=== PATIENT | male | born 1960 | race Caucasian/White ===

== ENCOUNTER 2018-05-16 13:18 | Outpatient (CLI) | payer MEDICARE | END 2018-05-16 13:19 | disposition home or self-care (01) | LOC: BICCT 13:18 | PROVIDERS: ATTEND Internal Medicine Cardiovascular Disease | DX: I65.23 Occlusion and stenosis of bilateral carotid arteries (principal) | CPT/HCPCS: 82565 ==

== ENCOUNTER 2018-07-11 17:20 | Outpatient (CLI) | payer SELFPAY ==
--- NOTE | 2018-07-11 20:46 | ULT ---
RIGHT LOWER EXTREMITY VENOUS DOPPLER ULTRASOUND: 07/11/2018 HISTORY: Pain, swelling, and edema. Assess for DVT. COMPARISON: None. TECHNIQUE: Multiplanar galvan-scale sonographic imaging of the venous structures of the right lower extremity obta ined with color-flow and spectral analysis. FINDINGS: Right common femoral vein, greater saphenous vein, profunda femoral vein femoral vein, popliteal vein , and posterior tibial vein are patent. Normal blood flow, augmentation, and compression within the deep venous system on the right. No evidence for DVT. IMPRESSION: No evidence for deep venous thrombosis of the right lower extremity. POS: [facility]
== END 2018-07-11 17:21 | disposition home or self-care (01) ==
LOC: ULT 17:20
PROVIDERS: ATTEND Family Medicine
DX: M79.604 Pain in right leg (principal)

== ENCOUNTER 2021-09-16 02:06 | Inpatient (IN) | payer MEDICARE ==
[2021-09-16 03:01] LABS: #Eosinphils 0.2 thou/uL (0.0-0.7); #Lymphocytes 0.5 thou/uL (1.20-3.40); #Monocytes 0.7 thou/uL (0.11-0.59); #Neutrophils 7.3 thou/uL (1.40-6.50); %Basophils 0.1 % (0.0-1.0); %Eosinophils 2.2 % (0.0-10.0); %Lymphocytes 5.3 % (21.0-51.0); %Neutrophils 84.3 % (42.0-75.0); Hemoglobin 9.3 g/dL (14.0-18.0); Mean Corpuscular HGB CONC 31.9 g/dL (32.0-36.0); Mean Corpuscular Hemoglobin 27.4 pg (27.0-31.0); Mean Corpuscular Volume 85.7 fL (78.0-98.0); Mean Platelet Volume 7.3 fL (7.4-10.4); Platelet Count 84 thou/uL (130-400); RBC Distribution Width 14.3 % (11.5-14.5); Red Blood Cell (RBC) Count 3.38 mill/uL (4.70-6.10); White Blood Cell (WBC) Count 8.7 thou/uL (4.8-10.8)
[2021-09-16 03:18] LABS: ALT (SGPT) 50 U/L (8-55); AST (SGOT) 37 U/L (5-34); Albumin 3.9 g/dL (3.4-4.8); Alkaline Phosphatase 165 U/L (40-110); Anion Gap 16 mmol/L (10-20); BUN (Urea Nitrogen) 71 mg/dL (8.4-25.7); Bilirubin, Total 0.6 mg/dL (0.2-1.2); Calc. Creatinine Clearance 0 mL/min (70-130); Calcium 8.9 mg/dL (7.8-10.44); Carbon Dioxide 20 mmol/L (23-31); Chloride 104 mmol/L (98-107); Globulin 3.7 g/dL (2.4-3.5); Glucose 157 mg/dL (80-115); Potassium 4.4 mmol/L (3.5-5.1); Protein, Total 7.6 g/dL (5.8-8.1); Sodium 136 mmol/L (136-145)
[2021-09-16] MEDS ORDERED: Fentanyl 100 MCG/2 ML VIAL ONE (03:53)
[2021-09-16] MEDS ORDERED: Dextrose 50% Abboject 50 ML SYRINGE SLOW IVP PRN (04:49)
[2021-09-16] MEDS ORDERED: Dextrose 5% in Water 1,000 ML IV PRN (04:49)
[2021-09-16] MEDS ORDERED: Ondansetron ODT 4 MG TAB PO PRN (04:49)
[2021-09-16] MEDS: traMADol HCl 50 MG TAB PO SCH ×3 (05:23→20:23)
[2021-09-16] MEDS: Acetaminophen 325 MG TAB PO SCH ×4 (05:23→23:27)
[2021-09-16 05:44] VITALS: BMI 28.1
[2021-09-16] MEDS: Ondansetron PF 4 MG/2 ML Vial IVP PRN ×2 (08:25→15:35)
[2021-09-16 09:17] LABS: Magnesium 2.2 mg/dL (1.6-2.6)
[2021-09-16] MEDS: pyridOXINE 50 MG (B6) TAB PO SCH ×2 (09:23→20:24)
[2021-09-16] MEDS: Carvedilol 6.25 MG TAB PO SCH ×2 (09:23→20:23)
[2021-09-16] MEDS: Famotidine 20 MG TAB PO SCH (09:23)
[2021-09-16] MEDS: Folic Acid 1 MG TAB PO SCH (09:23)
[2021-09-16] MEDS: Cyanocobalamin (Vitamin B-12) 1,000 MCG TAB PO SCH (09:23)
[2021-09-16] MEDS: hydrALAZINE 25 MG TAB PO SCH ×3 (09:24→20:23)
[2021-09-16] MEDS ORDERED: traMADol HCl 50 MG TAB PO PRN (10:42)
[2021-09-16] MEDS ORDERED: Morphine 4 MG/ML VIAL SLOW IVP SCH (15:15)
[2021-09-16] MEDS ORDERED: Promethazine HCl 25 MG/ML VIAL IM SCH (18:30)
[2021-09-16] MEDS: Gabapentin 300 MG CAP PO SCH (20:23)
[2021-09-16] MEDS: Atorvastatin Calcium 40 MG TAB PO SCH (20:23)
[2021-09-16] MEDS: cloNIDine 0.1 MG TAB PO SCH (20:23)
[2021-09-16] MEDS: Lantus 1000 UNITS/10 ML VIAL SC SCH (21:52)
[2021-09-17] MEDS: Acetaminophen 325 MG TAB PO SCH ×3 (05:31→17:41)
[2021-09-17 07:04] LABS: #Eosinphils 0.2 thou/uL (0.0-0.7); #Lymphocytes 0.4 thou/uL (1.20-3.40); #Monocytes 1.1 thou/uL (0.11-0.59); #Neutrophils 7.2 thou/uL (1.40-6.50); %Basophils 0.2 % (0.0-1.0); %Lymphocytes 4.7 % (21.0-51.0); %Monocytes 12.4 % (0.0-10.0); %Neutrophils 80.8 % (42.0-75.0); Hemoglobin 10.5 g/dL (14.0-18.0); Mean Corpuscular HGB CONC 31.4 g/dL (32.0-36.0); Mean Corpuscular Hemoglobin 27.3 pg (27.0-31.0); Mean Corpuscular Volume 87.1 fL (78.0-98.0); Mean Platelet Volume 7.8 fL (7.4-10.4); Platelet Count 112 thou/uL (130-400); RBC Distribution Width 14.8 % (11.5-14.5); Red Blood Cell (RBC) Count 3.83 mill/uL (4.70-6.10); White Blood Cell (WBC) Count 8.9 thou/uL (4.8-10.8)
[2021-09-17 07:22] LABS: Anion Gap 16 mmol/L (10-20); BUN (Urea Nitrogen) 64 mg/dL (8.4-25.7); Calc. Creatinine Clearance 24 mL/min (70-130); Calcium 9.4 mg/dL (7.8-10.44); Carbon Dioxide 20 mmol/L (23-31); Chloride 107 mmol/L (98-107); Glucose 127 mg/dL (80-115); Phosphorus 3.8 mg/dL (2.3-4.7); Potassium 4.4 mmol/L (3.5-5.1); Sodium 139 mmol/L (136-145)
[2021-09-17] MEDS: Cyanocobalamin (Vitamin B-12) 1,000 MCG TAB PO SCH (08:32)
[2021-09-17] MEDS: hydrALAZINE 25 MG TAB PO SCH ×3 (08:32→21:33)
[2021-09-17] MEDS: cloNIDine 0.1 MG TAB PO SCH ×3 (08:32→21:33)
[2021-09-17] MEDS: traMADol HCl 50 MG TAB PO SCH ×2 (08:32→21:32)
[2021-09-17] MEDS: pyridOXINE 50 MG (B6) TAB PO SCH ×2 (08:33→21:33)
[2021-09-17] MEDS: Famotidine 20 MG TAB PO SCH (08:33)
[2021-09-17] MEDS: Carvedilol 6.25 MG TAB PO SCH ×2 (08:33→21:33)
[2021-09-17] MEDS: Gabapentin 300 MG CAP PO SCH ×2 (08:33→21:33)
[2021-09-17] MEDS: Folic Acid 1 MG TAB PO SCH (08:33)
[2021-09-17] MEDS ORDERED: hydrALAZINE 20 MG/ML VIAL SLOW IVP PRN (09:07)
[2021-09-17] MEDS ORDERED: NIFEdipine XL 60 MG TAB PO SCH (10:30)
[2021-09-17] MEDS: Timolol 0.5% Ophth Soln 5 ml Bottle EA EYE SCH (14:10)
[2021-09-17] MEDS: HumaLOG 300 UNITS/3 ML VIAL SC PRN (17:42)
[2021-09-17] MEDS ORDERED: Enoxaparin Sodium 40 MG/0.4 ML SYRINGE SC SCH (21:00)
[2021-09-17] MEDS: Docusate 100 MG CAP PO SCH (21:32)
[2021-09-17] MEDS: Lantus 1000 UNITS/10 ML VIAL SC SCH (21:33)
[2021-09-17] MEDS: Atorvastatin Calcium 40 MG TAB PO SCH (21:33)
[2021-09-18] MEDS: Acetaminophen 325 MG TAB PO SCH ×4 (00:44→17:54)
[2021-09-18] MEDS: Acetaminophen/Codeine 30-300mg Tablet PO PRN (02:57)
[2021-09-18] MEDS: NIFEdipine XL 60 MG TAB PO SCH (08:37)
[2021-09-18] MEDS: Docusate 100 MG CAP PO SCH ×2 (08:38→20:49)
[2021-09-18] MEDS: Famotidine 20 MG TAB PO SCH (08:38)
[2021-09-18] MEDS: traMADol HCl 50 MG TAB PO SCH ×2 (08:38→20:51)
[2021-09-18] MEDS: Folic Acid 1 MG TAB PO SCH (08:38)
[2021-09-18] MEDS: Gabapentin 300 MG CAP PO SCH ×2 (08:39→20:50)
[2021-09-18] MEDS: pyridOXINE 50 MG (B6) TAB PO SCH ×2 (08:39→20:50)
[2021-09-18] MEDS: Carvedilol 6.25 MG TAB PO SCH ×2 (08:39→20:49)
[2021-09-18] MEDS: hydrALAZINE 25 MG TAB PO SCH ×3 (08:39→20:50)
[2021-09-18] MEDS: cloNIDine 0.1 MG TAB PO SCH ×3 (08:39→20:49)
[2021-09-18] MEDS: Cyanocobalamin (Vitamin B-12) 1,000 MCG TAB PO SCH (08:40)
[2021-09-18] MEDS: HumaLOG 300 UNITS/3 ML VIAL SC PRN ×2 (11:39→17:54)
[2021-09-18] MEDS: Atorvastatin Calcium 40 MG TAB PO SCH (20:48)
[2021-09-18] MEDS ORDERED: Enoxaparin Sodium 30 MG/0.3 ML SYRINGE SC SCH (21:00)
[2021-09-18] MEDS: Lantus 1000 UNITS/10 ML VIAL SC SCH (21:42)
[2021-09-19] MEDS: Acetaminophen 325 MG TAB PO SCH ×3 (00:17→11:35)
[2021-09-19] MEDS: Acetaminophen/Codeine 30-300mg Tablet PO PRN (03:11)
[2021-09-19] MEDS ORDERED: Polyethylene Glycol 3350 17 GM Packet PO SCH (09:00)
[2021-09-19] MEDS: Docusate 100 MG CAP PO SCH (09:23)
[2021-09-19] MEDS: NIFEdipine XL 60 MG TAB PO SCH (09:23)
[2021-09-19] MEDS: Gabapentin 300 MG CAP PO SCH (09:23)
[2021-09-19] MEDS: Folic Acid 1 MG TAB PO SCH (09:23)
[2021-09-19] MEDS: Famotidine 20 MG TAB PO SCH (09:23)
[2021-09-19] MEDS: Carvedilol 6.25 MG TAB PO SCH (09:23)
[2021-09-19] MEDS: pyridOXINE 50 MG (B6) TAB PO SCH (09:24)
[2021-09-19] MEDS: traMADol HCl 50 MG TAB PO SCH (09:24)
[2021-09-19] MEDS: Cyanocobalamin (Vitamin B-12) 1,000 MCG TAB PO SCH (09:24)
[2021-09-19] MEDS: hydrALAZINE 25 MG TAB PO SCH (09:24)
[2021-09-19] MEDS: cloNIDine 0.1 MG TAB PO SCH (09:24)
[2021-09-19] MEDS: Timolol 0.5% Ophth Soln 5 ml Bottle EA EYE SCH (11:35)
[2021-09-19] MEDS: HumaLOG 300 UNITS/3 ML VIAL SC PRN (11:56)
[2021-09-19 11:58] VITALS: BP 154/90; TEMP 98.1
== END 2021-09-19 14:00 | DRG 536 ==
LOC: ERS 02:06 → SURG A 03:00
PROVIDERS: ADMIT Specialist; ATTEND Surgery
DX: S72.001A Fracture of unspecified part of neck of right femur, initial encounter for closed fracture (principal); N18.4 Chronic kidney disease, stage 4 (severe); I12.0 Hypertensive chronic kidney disease with stage 5 chronic kidney disease or end stage renal disease; W05.0XXA Fall from non-moving wheelchair, initial encounter; E11.22 Type 2 diabetes mellitus with diabetic chronic kidney disease; D69.6 Thrombocytopenia, unspecified; Z99.3 Dependence on wheelchair; Z86.73 Personal history of transient ischemic attack (TIA), and cerebral infarction without residual deficits; Z87.11 Personal history of peptic ulcer disease; Z88.0 Allergy status to penicillin; Y92.009 Unspecified place in unspecified non-institutional (private) residence as the place of occurrence of the external cause
CPT/HCPCS: 36415; 36416; 71045; 80048; 80053; 83735; 84100; 85025; 93005; 94640; 96374; J1650; J1815; J2270; J2405; J2550; J3010; J7620

== ENCOUNTER 2022-02-08 15:21 | Emergency (ER) | payer MEDICARE, SELFPAY | END 2022-02-08 17:57 | LOC: ERS 15:21 | DX: R60.0 Localized edema (principal); F17.220 Nicotine dependence, chewing tobacco, uncomplicated; I10 Essential (primary) hypertension; Z86.73 Personal history of transient ischemic attack (TIA), and cerebral infarction without residual deficits; Z79.899 Other long term (current) drug therapy ==

== ENCOUNTER 2022-02-16 20:52 | Inpatient (IN) | payer MEDICARE, SELFPAY ==
[2022-02-16 21:35] LABS: Actual Bicarbonate (HCO3a) 18.8 mEq/L (22-28); Analyzer IN Cardio ER; Base Excess (BEa) -7.5 mEq/L (-2.0 to +3.0); CO2 Tension 42.5 mmHg (35.0-45.0); Carboxyhemoglobin (COHb) 1.5 gm% (0.0-3.0); O2 Tension (PaO2), arterial 70.5 mmHg (> 80.0); Potassium - ABG Lab 4.84 mmol/L (3.70-5.30); pH, Arterial 7.26 (7.35-7.45)
[2022-02-16 21:50] LABS: #Lymphocytes 0.4 thou/uL (1.20-3.40); #Monocytes 0.7 thou/uL (0.11-0.59); #Neutrophils 9.3 thou/uL (1.40-6.50); %Eosinophils 0.2 % (0.0-10.0); %Lymphocytes 3.7 % (21.0-51.0); %Monocytes 6.9 % (0.0-10.0); %Neutrophils 89.2 % (42.0-75.0); Mean Corpuscular HGB CONC 28.2 g/dL (32.0-36.0); Mean Corpuscular Hemoglobin 21.2 pg (27.0-31.0); Mean Corpuscular Volume 75.1 fL (78.0-98.0); Mean Platelet Volume 9.1 fL (7.4-10.4); Platelet Count 124 thou/uL (130-400); RBC Distribution Width 16.7 % (11.5-14.5); Red Blood Cell (RBC) Count 2.36 mill/uL (4.70-6.10); White Blood Cell (WBC) Count 10.4 thou/uL (4.8-10.8)
[2022-02-16 21:51] LABS: Hemoglobin (Hb) 5.3 g/dL (14.0-18.0)
[2022-02-16] MEDS ORDERED: Cefepime 2 GM VIAL ONE (21:51)
[2022-02-16 21:52] LABS: ALV-art Gradient 446.775 mmHg (0-20); Puncture Site LRA
[2022-02-16 22:03] LABS: Bacteria/HPF 2+ HPF (None Seen); Bilirubin Negative (Negative); Blood, Urine 1+ (Negative); Clarity Turbid (Clear); Glucose, Urine (Dipstick) Normal (Negative); Ketone, Urine Negative (Negative); Leukocyte 500 Leu/uL (Negative); Mucous/LPF Rare LPF (<2+); Nitrite Negative (Negative); Protein, Urine (Dipstick) 50 mg/dL (Neg-Trace); Renal Epithelial 0-3 HPF (None Seen); Specific Gravity, Urine 1.014 (1.002-1.036); Squamous Epithelial 0-3 HPF (0-3); Urobilinogen Normal mg/dL (Less than 2); WBC/HPF 21-50 HPF (0-3)
[2022-02-16 22:07] LABS: ALT (SGPT) 26 U/L (8-55); AST (SGOT) 79 U/L (5-34); Albumin 2.8 g/dL (3.4-4.8); Anion Gap 19 mmol/L (10-20); BUN (Urea Nitrogen) 73 mg/dL (8.4-25.7); Bilirubin, Total 1.2 mg/dL (0.2-1.2); CK (CPK) 1391 U/L (30-200); Calc. Creatinine Clearance 0 mL/min (70-130); Calcium 8.2 mg/dL (7.8-10.44); Carbon Dioxide 18 mmol/L (23-31); Chloride 94 mmol/L (98-107); Globulin 3.5 g/dL (2.4-3.5); Glucose 121 mg/dL (80-115); Potassium 5.1 mmol/L (3.5-5.1); Protein, Total 6.3 g/dL (5.8-8.1); Sodium 126 mmol/L (136-145)
[2022-02-16] MEDS ORDERED: Vancomycin 1 GM/200 ML BAG ONE (22:33)
[2022-02-16 22:34] LABS: Alkaline Phosphatase 87 U/L (40-110)
[2022-02-16 23:00] LABS: SARS-CoV-2 NAA Rapid Test Not Detected (NotDetected)
[2022-02-17] MEDS ORDERED: Ondansetron PF 4 MG/2 ML Vial IVP PRN (00:29)
[2022-02-17] MEDS ORDERED: Dextrose 50% Abboject 50 ML SYRINGE SLOW IVP PRN (00:29)
[2022-02-17] MEDS ORDERED: Acetaminophen 325 MG TAB PO PRN (00:29)
[2022-02-17] MEDS ORDERED: Ondansetron ODT 4 MG TAB PO PRN (00:29)
[2022-02-17] MEDS ORDERED: HumaLOG 300 UNITS/3 ML VIAL SC PRN ×2 (00:29)
[2022-02-17] MEDS ORDERED: Dextrose 5% in Water 1,000 ML IV PRN (00:29)
[2022-02-17] MEDS ORDERED: Acetaminophen 650 MG Suppository PR PRN (00:29)
[2022-02-17] MEDS ORDERED: methylPREDNISolone Sod Succ/PF 125 MG/2 ML VIAL IVP SCH (01:00)
[2022-02-17] MEDS ORDERED: Azithromycin 500 MG in Sodium Chloride 0.9% 250 ML 250 ML IVPB SCH (01:00)
[2022-02-17] MEDS: Doxycycline 100 MG in Sodium Chloride 0.9% 100 ML IVPB SCH ×2 (02:14→14:35)
[2022-02-17 02:38] LABS: #Lymphocytes 0.3 thou/uL (1.20-3.40); #Monocytes 0.8 thou/uL (0.11-0.59); #Neutrophils 8.5 thou/uL (1.40-6.50); %Eosinophils 0.2 % (0.0-10.0); %Monocytes 8.3 % (0.0-10.0); %Neutrophils 88.6 % (42.0-75.0); Hemoglobin 5.2 g/dL (14.0-18.0); Mean Corpuscular HGB CONC 28.5 g/dL (32.0-36.0); Mean Corpuscular Hemoglobin 22.5 pg (27.0-31.0); Mean Platelet Volume 8.9 fL (7.4-10.4); Platelet Count 111 thou/uL (130-400); RBC Distribution Width 17.6 % (11.5-14.5); Red Blood Cell (RBC) Count 2.29 mill/uL (4.70-6.10); White Blood Cell (WBC) Count 9.7 thou/uL (4.8-10.8)
[2022-02-17 02:39] LABS: Anion Gap 20 mmol/L (10-20); BUN (Urea Nitrogen) 75 mg/dL (8.4-25.7); CK (CPK) 1381 U/L (30-200); Calc. Creatinine Clearance 0 mL/min (70-130); Calcium 8.2 mg/dL (7.8-10.44); Carbon Dioxide 13 mmol/L (23-31); Chloride 98 mmol/L (98-107); Glucose 112 mg/dL (80-115); Sodium 126 mmol/L (136-145)
[2022-02-17 06:40] LABS: Hemoglobin 6.4 g/dL (14.0-18.0); Platelet Count 113 thou/uL (130-400)
[2022-02-17] MEDS ORDERED: Heparin 5,000 UNITS/ML VIAL SC SCH (09:00)
[2022-02-17] MEDS ORDERED: Furosemide 40 MG/4 ML VIAL SLOW IVP SCH (10:00)
[2022-02-17] MEDS: Cefepime 1 GM in Sodium Chloride 0.9% 100 ML IVPB SCH ×2 (10:06→20:26)
[2022-02-17] MEDS: Pantoprazole 40 MG VIAL IVP SCH ×2 (10:07→20:26)
[2022-02-17] MEDS ORDERED: Vancomycin Sliding Scale 1 EACH IVPB SCH (10:30)
[2022-02-17] MEDS: Albumin 25% 25 GM/100 ML BOT IVPB SCH (11:07)
[2022-02-17] MEDS ORDERED: Epoetin (ESRD) 20,000 UNITS/ML SC SCH (12:00)
[2022-02-17] MEDS ORDERED: Epoetin (ESRD) 10,000 UNITS/ML VIAL SC SCH (15:30)
[2022-02-17 16:29] LABS: #Lymphocytes 0.2 thou/uL (1.20-3.40); #Monocytes 0.2 thou/uL (0.11-0.59); #Neutrophils 8.2 thou/uL (1.40-6.50); %Eosinophils 0.2 % (0.0-10.0); %Lymphocytes 2.3 % (21.0-51.0); %Monocytes 1.9 % (0.0-10.0); %Neutrophils 95.6 % (42.0-75.0); Mean Corpuscular HGB CONC 30.2 g/dL (32.0-36.0); Mean Corpuscular Hemoglobin 23.6 pg (27.0-31.0); Mean Corpuscular Volume 78.2 fL (78.0-98.0); Mean Platelet Volume 9.2 fL (7.4-10.4); Platelet Count 89 thou/uL (130-400); RBC Distribution Width 18.2 % (11.5-14.5); Red Blood Cell (RBC) Count 2.56 mill/uL (4.70-6.10); White Blood Cell (WBC) Count 8.5 thou/uL (4.8-10.8)
[2022-02-17] MEDS ORDERED: VANCOMYCIN 1.25 GM/250 ML BAG IVPB SCH (21:00)
[2022-02-17] MEDS ORDERED: Lorazepam 2 MG/ML VIAL SLOW IVP SCH (21:30)
[2022-02-18 00:48] LABS: Hemoglobin 7.3 g/dL (14.0-18.0); Platelet Count 89 thou/uL (130-400)
[2022-02-18 00:55] LABS: Vancomycin, Trough 8.8 ug/mL
[2022-02-18] MEDS: Doxycycline 100 MG in Sodium Chloride 0.9% 100 ML IVPB SCH ×2 (01:45→14:46)
[2022-02-18] MEDS ORDERED: Vancomycin 1 GM in Premix Bag 1 BAG IVPB SCH (02:30)
[2022-02-18 07:27] LABS: Chloride 99 mmol/L (98-107); Potassium 4.7 mmol/L (3.5-5.1); Sodium 130 mmol/L (136-145)
[2022-02-18 07:28] LABS: Anion Gap 18 mmol/L (10-20); BUN (Urea Nitrogen) 81 mg/dL (8.4-25.7); Calc. Creatinine Clearance 20 mL/min (70-130); Calcium 8.2 mg/dL (7.8-10.44); Carbon Dioxide 18 mmol/L (23-31); Glucose 105 mg/dL (80-115)
[2022-02-18 09:39] LABS: #Lymphocytes 0.3 thou/uL (1.20-3.40); #Monocytes 0.6 thou/uL (0.11-0.59); #Neutrophils 10.3 thou/uL (1.40-6.50); %Eosinophils 0.2 % (0.0-10.0); %Lymphocytes 2.4 % (21.0-51.0); %Monocytes 5.3 % (0.0-10.0); %Neutrophils 92.1 % (42.0-75.0); Hemoglobin 7.1 g/dL (14.0-18.0); Hypochromia SLIGHT = 6-15 cells (100X) (0-5/hpf); MDiff Complete? YES; Mean Corpuscular HGB CONC 29.7 g/dL (32.0-36.0); Mean Corpuscular Hemoglobin 23.7 pg (27.0-31.0); Mean Corpuscular Volume 79.8 fL (78.0-98.0); Mean Platelet Volume 8.5 fL (7.4-10.4); Ovalocytes SLIGHT = 2-5 cells (100X) (0-1/hpf); Platelet Count 87 thou/uL (130-400); Platelet Morphology Comment Appears Decreased; Polychromasia SLIGHT = 2-3 cells (100X) (0-2/hpf); Red Blood Cell (RBC) Count 2.98 mill/uL (4.70-6.10); White Blood Cell (WBC) Count 11.2 thou/uL (4.8-10.8)
[2022-02-18] MEDS: Cefepime 1 GM in Sodium Chloride 0.9% 100 ML IVPB SCH ×2 (09:55→21:52)
[2022-02-18] MEDS: Pantoprazole 40 MG VIAL IVP SCH ×2 (09:56→21:52)
[2022-02-18 11:20] LABS: Actual Bicarbonate (HCO3a) 19.5 mEq/L (22-28); Base Excess (BEa) -6.3 mEq/L (-2.0 to +3.0); CO2 Tension 39.8 mmHg (35.0-45.0); Calcium, Ionized (arterial) 1.12 mmol/L (1.12-1.30); Carboxyhemoglobin (COHb) 1.3 gm% (0.0-3.0); Hemoglobin (Hb) 7.8 g/dL (14.0-18.0); Potassium - ABG Lab 4.61 mmol/L (3.70-5.30); pH, Arterial 7.31 (7.35-7.45)
[2022-02-18 11:22] LABS: O2 Tension (PaO2), arterial 51.5 mmHg (> 80.0)
[2022-02-18 11:23] LABS: Puncture Site RBA
[2022-02-18] MEDS: Albumin 25% 25 GM/100 ML BOT IVPB SCH (11:50)
[2022-02-18] MEDS: Dextrose 5%-Lactated Ringers 1,000 ML IV SCH (11:50)
[2022-02-18] MEDS: Lorazepam 2 MG/ML VIAL SLOW IVP PRN (12:05)
[2022-02-18 15:39] LABS: Hemoglobin 6.9 g/dL (14.0-18.0)
[2022-02-19] MEDS: Doxycycline 100 MG in Sodium Chloride 0.9% 100 ML IVPB SCH ×2 (01:42→15:18)
[2022-02-19 04:44] LABS: #Eosinphils 0.1 thou/uL (0.0-0.7); #Lymphocytes 0.1 thou/uL (1.20-3.40); #Monocytes 0.7 thou/uL (0.11-0.59); #Neutrophils 9.2 thou/uL (1.40-6.50); %Eosinophils 0.5 % (0.0-10.0); %Lymphocytes 1.4 % (21.0-51.0); %Monocytes 6.9 % (0.0-10.0); %Neutrophils 91.1 % (42.0-75.0); Hemoglobin 8.7 g/dL (14.0-18.0); Mean Corpuscular HGB CONC 31.2 g/dL (32.0-36.0); Mean Corpuscular Hemoglobin 25.7 pg (27.0-31.0); Mean Corpuscular Volume 82.4 fL (78.0-98.0); Mean Platelet Volume 9.5 fL (7.4-10.4); Platelet Count 69 thou/uL (130-400); RBC Distribution Width 18.6 % (11.5-14.5); White Blood Cell (WBC) Count 10.1 thou/uL (4.8-10.8)
[2022-02-19 04:59] LABS: Vancomycin, Random 15.8 ug/mL (See Comment)
[2022-02-19 05:00] LABS: Anion Gap 17 mmol/L (10-20); BUN (Urea Nitrogen) 78 mg/dL (8.4-25.7); Calc. Creatinine Clearance 21 mL/min (70-130); Carbon Dioxide 19 mmol/L (23-31); Chloride 102 mmol/L (98-107); Glucose 90 mg/dL (80-115); Potassium 4.2 mmol/L (3.5-5.1); Sodium 134 mmol/L (136-145)
[2022-02-19] MEDS ORDERED: Vancomycin HCl 500 MG in Sodium Chloride 0.9% 100 ML IVPB SCH (05:30)
[2022-02-19 07:56] LABS: Iron 74 ug/dL (65-175); Iron Binding Capacity, Total 269 mcg/dL (261-462)
[2022-02-19] MEDS: Pantoprazole 40 MG VIAL IVP SCH ×2 (09:41→19:52)
[2022-02-19] MEDS: Cefepime 1 GM in Sodium Chloride 0.9% 100 ML IVPB SCH ×2 (09:41→19:52)
[2022-02-19] MEDS: Morphine 2 MG/ML VIAL SLOW IVP PRN ×2 (09:44→21:43)
[2022-02-19] MEDS: Dextrose 5%-Lactated Ringers 1,000 ML IV SCH (11:26)
[2022-02-19] MEDS: Lorazepam 2 MG/ML VIAL SLOW IVP PRN (11:31)
[2022-02-19] MEDS ORDERED: hydrALAZINE 20 MG/ML VIAL SLOW IVP PRN (18:04)
[2022-02-19 18:24] VITALS: BP 193/93
[2022-02-20] MEDS: Doxycycline 100 MG in Sodium Chloride 0.9% 100 ML IVPB SCH ×2 (02:22→13:32)
[2022-02-20] MEDS: Dextrose 5%-Lactated Ringers 1,000 ML IV SCH (02:25)
[2022-02-20 03:52] LABS: #Eosinphils 0.1 thou/uL (0.0-0.7); #Lymphocytes 0.2 thou/uL (1.20-3.40); #Monocytes 0.8 thou/uL (0.11-0.59); %Eosinophils 0.8 % (0.0-10.0); %Lymphocytes 1.9 % (21.0-51.0); %Monocytes 7.7 % (0.0-10.0); %Neutrophils 89.7 % (42.0-75.0); Hemoglobin 9.3 g/dL (14.0-18.0); Mean Corpuscular HGB CONC 31.2 g/dL (32.0-36.0); Mean Corpuscular Hemoglobin 25.6 pg (27.0-31.0); Mean Corpuscular Volume 82.1 fL (78.0-98.0); Mean Platelet Volume 10.3 fL (7.4-10.4); Platelet Count 63 thou/uL (130-400); RBC Distribution Width 18.9 % (11.5-14.5); Red Blood Cell (RBC) Count 3.62 mill/uL (4.70-6.10)
[2022-02-20 04:08] LABS: Vancomycin, Random 18.7 ug/mL (See Comment)
[2022-02-20 04:10] LABS: Anion Gap 18 mmol/L (10-20); BUN (Urea Nitrogen) 76 mg/dL (8.4-25.7); Calc. Creatinine Clearance 23 mL/min (70-130); Calcium 8.4 mg/dL (7.8-10.44); Carbon Dioxide 18 mmol/L (23-31); Chloride 106 mmol/L (98-107); Glucose 97 mg/dL (80-115); Sodium 138 mmol/L (136-145)
[2022-02-20] MEDS: Morphine 2 MG/ML VIAL SLOW IVP PRN ×3 (05:05→20:14)
[2022-02-20] MEDS ORDERED: Vancomycin HCl 500 MG in Sodium Chloride 0.9% 100 ML IVPB SCH (06:00)
[2022-02-20] MEDS: Pantoprazole 40 MG VIAL IVP SCH ×2 (08:54→20:14)
[2022-02-20] MEDS: Cefepime 1 GM in Sodium Chloride 0.9% 100 ML IVPB SCH ×2 (08:54→20:12)
[2022-02-20] MEDS: Dextrose 5% in Water 1,000 ML IV SCH (14:14)
[2022-02-20] MEDS ORDERED: Furosemide 40 MG/4 ML VIAL SLOW IVP SCH ×2 (14:15→19:00)
[2022-02-21] MEDS: Doxycycline 100 MG in Sodium Chloride 0.9% 100 ML IVPB SCH ×2 (01:41→14:03)
[2022-02-21 05:17] LABS: #Eosinphils 0.1 thou/uL (0.0-0.7); #Lymphocytes 0.3 thou/uL (1.20-3.40); #Monocytes 0.7 thou/uL (0.11-0.59); #Neutrophils 10.5 thou/uL (1.40-6.50); %Eosinophils 0.8 % (0.0-10.0); %Lymphocytes 2.6 % (21.0-51.0); %Monocytes 5.7 % (0.0-10.0); %Neutrophils 90.9 % (42.0-75.0); Hemoglobin 9.5 g/dL (14.0-18.0); Mean Corpuscular HGB CONC 31.6 g/dL (32.0-36.0); Mean Corpuscular Volume 82.3 fL (78.0-98.0); Mean Platelet Volume 5.5 fL (7.4-10.4); Platelet Count 50 thou/uL (130-400); RBC Distribution Width 19.2 % (11.5-14.5); Red Blood Cell (RBC) Count 3.67 mill/uL (4.70-6.10); White Blood Cell (WBC) Count 11.5 thou/uL (4.8-10.8)
[2022-02-21 05:29] LABS: Vancomycin, Random 19.6 ug/mL (See Comment)
[2022-02-21 05:40] LABS: ALT (SGPT) 48 U/L (8-55); AST (SGOT) 84 U/L (5-34); Albumin 2.9 g/dL (3.4-4.8); Alkaline Phosphatase 77 U/L (40-110); Anion Gap 21 mmol/L (10-20); BUN (Urea Nitrogen) 77 mg/dL (8.4-25.7); Calc. Creatinine Clearance 25 mL/min (70-130); Calcium 8.7 mg/dL (7.8-10.44); Carbon Dioxide 17 mmol/L (23-31); Chloride 106 mmol/L (98-107); Estimated GFR 16; Globulin 3.7 g/dL (2.4-3.5); Glucose 115 mg/dL (80-115); Magnesium 2.1 mg/dL (1.6-2.6); Potassium 4.2 mmol/L (3.5-5.1); Protein, Total 6.6 g/dL (5.8-8.1); Sodium 140 mmol/L (136-145)
[2022-02-21] MEDS ORDERED: Vancomycin HCl 500 MG in Sodium Chloride 0.9% 100 ML IVPB SCH (06:30)
[2022-02-21] MEDS: Lorazepam 2 MG/ML VIAL SLOW IVP PRN ×2 (07:10→20:15)
[2022-02-21] MEDS: Pantoprazole 40 MG VIAL IVP SCH ×2 (08:32→21:11)
[2022-02-21] MEDS: Cefepime 1 GM in Sodium Chloride 0.9% 100 ML IVPB SCH ×2 (08:32→21:11)
[2022-02-21 11:12] VITALS: BMI 30.9
[2022-02-21] MEDS: Dextrose 5% in Water 1,000 ML IV SCH (14:03)
[2022-02-22] MEDS: Doxycycline 100 MG in Sodium Chloride 0.9% 100 ML IVPB SCH (02:16)
[2022-02-22] MEDS: Lorazepam 2 MG/ML VIAL SLOW IVP PRN (03:36)
[2022-02-22 05:16] LABS: #Eosinphils 0.1 thou/uL (0.0-0.7); #Lymphocytes 0.2 thou/uL (1.20-3.40); #Monocytes 0.6 thou/uL (0.11-0.59); #Neutrophils 7.6 thou/uL (1.40-6.50); %Eosinophils 1.6 % (0.0-10.0); %Lymphocytes 2.8 % (21.0-51.0); %Neutrophils 88.5 % (42.0-75.0); Hemoglobin 8.9 g/dL (14.0-18.0); Mean Corpuscular HGB CONC 30.1 g/dL (32.0-36.0); Mean Corpuscular Hemoglobin 24.8 pg (27.0-31.0); Mean Corpuscular Volume 82.4 fL (78.0-98.0); Mean Platelet Volume 5.1 fL (7.4-10.4); Platelet Count 38 thou/uL (130-400); RBC Distribution Width 19.5 % (11.5-14.5); Red Blood Cell (RBC) Count 3.61 mill/uL (4.70-6.10); White Blood Cell (WBC) Count 8.6 thou/uL (4.8-10.8)
[2022-02-22 05:25] LABS: Vancomycin, Random 21.7 ug/mL (See Comment)
[2022-02-22 05:29] LABS: Anion Gap 17 mmol/L (10-20); BUN (Urea Nitrogen) 76 mg/dL (8.4-25.7); Calc. Creatinine Clearance 27 mL/min (70-130); Calcium 8.8 mg/dL (7.8-10.44); Carbon Dioxide 20 mmol/L (23-31); Chloride 107 mmol/L (98-107); Estimated GFR 17; Glucose 134 mg/dL (80-115); Potassium 3.1 mmol/L (3.5-5.1); Sodium 141 mmol/L (136-145)
[2022-02-22] MEDS ORDERED: Potassium Chloride 10 MEQ in Premix Bag 1 BAG IVPB SCH (09:15)
[2022-02-22] MEDS: Morphine 2 MG/ML VIAL SLOW IVP PRN (09:28)
[2022-02-22] MEDS: Cefepime 1 GM in Sodium Chloride 0.9% 100 ML IVPB SCH (09:29)
[2022-02-22] MEDS: Pantoprazole 40 MG VIAL IVP SCH (09:30)
[2022-02-22] MEDS ORDERED: Lorazepam 2 MG/ML VIAL SLOW IVP PRN ×2 (12:09→15:55)
[2022-02-22] MEDS ORDERED: Morphine 2 MG/ML VIAL SLOW IVP PRN (12:09)
[2022-02-22] MEDS ORDERED: Lorazepam 2 MG/ML VIAL SLOW IVP SCH (12:15)
[2022-02-22 13:50] VITALS: TEMP 97.6
[2022-02-22] MEDS ORDERED: Morphine 4 MG/ML VIAL SLOW IVP PRN (15:56)
== END 2022-02-22 16:44 | disposition hospice, inpatient (51) | DRG 871 ==
LOC: ERS 20:52 → CCU 23:48 → IMCU/EMU 02-19 12:47 → CCU 02-20 07:56
PROVIDERS: ADMIT Hospitalist; ATTEND Hospitalist
PROC: 3E03329 Introduction of Other Anti-infective into Peripheral Vein, Percutaneous Approach (ICD-10-PCS; principal; 2022-02-16)
PROC: 5A09357 Assistance with Respiratory Ventilation, Less than 24 Consecutive Hours, Continuous Positive Airway Pressure (ICD-10-PCS; 2022-02-17)
PROC: 30233N1 Transfusion of Nonautologous Red Blood Cells into Peripheral Vein, Percutaneous Approach (ICD-10-PCS; 2022-02-17)
DX: A41.9 Sepsis, unspecified organism (principal); Z66 Do not resuscitate; Z51.5 Encounter for palliative care; Z20.822 Contact with and (suspected) exposure to COVID-19; J80 Acute respiratory distress syndrome; G93.41 Metabolic encephalopathy; J18.1 Lobar pneumonia, unspecified organism; N17.9 Acute kidney failure, unspecified; N18.5 Chronic kidney disease, stage 5; I12.0 Hypertensive chronic kidney disease with stage 5 chronic kidney disease or end stage renal disease; E87.1 Hypo-osmolality and hyponatremia; N39.0 Urinary tract infection, site not specified; E87.2 Acidosis; R65.20 Severe sepsis without septic shock; K70.40 Alcoholic hepatic failure without coma; K70.30 Alcoholic cirrhosis of liver without ascites; D69.6 Thrombocytopenia, unspecified; E11.22 Type 2 diabetes mellitus with diabetic chronic kidney disease; I25.10 Atherosclerotic heart disease of native coronary artery without angina pectoris; F17.220 Nicotine dependence, chewing tobacco, uncomplicated; D63.1 Anemia in chronic kidney disease; Y95 Nosocomial condition; D50.9 Iron deficiency anemia, unspecified; E86.9 Volume depletion, unspecified; R79.89 Other specified abnormal findings of blood chemistry; R13.10 Dysphagia, unspecified; Z78.1 Physical restraint status; Z86.73 Personal history of transient ischemic attack (TIA), and cerebral infarction without residual deficits; Z87.11 Personal history of peptic ulcer disease; Z88.0 Allergy status to penicillin; Z79.899 Other long term (current) drug therapy; Z79.4 Long term (current) use of insulin; Z99.3 Dependence on wheelchair
CPT/HCPCS: 36415; 36416; 36430; 36600; 70450; 71045; 74018; 74019; 80048; 80053; 80202; 81003; 81015; 82140; 82550; 82728; 82805; 83540; 83550; 83605; 83735; 83880; 83930; 83935; 84145; 84300; 84484; 85025; 85379; 86850; 86900; 86901; 87040; 87086; 93005; 93306; 93970; 94640; 94660; 96361; 96365; 96367; C9113; J0692; J1940; J2060; J2270; J2405; J2930; J3370; J3480; J3490; J7070; J7620; P9016; P9047; Q4081

== ENCOUNTER 2022-02-22 17:00 | Inpatient (IN) | payer OTHER ==
[2022-02-22] MEDS ORDERED: Morphine 10 MG/0.5 ML ORAL SYRINGE SL PRN (17:21)
[2022-02-22] MEDS ORDERED: Hyoscyamine Sulfate SL 0.125 mg Tablet SL PRN (17:30)
[2022-02-22] MEDS ORDERED: Sodium Chloride 0.9% 1,000 ML IV SCH (17:30)
[2022-02-22] MEDS ORDERED: diphenhydrAMINE 50 MG/ML VIAL IVP PRN (17:30)
[2022-02-22] MEDS ORDERED: Promethazine HCl 25 MG SUPP PR PRN (17:30)
[2022-02-22] MEDS ORDERED: Ondansetron PF 4 MG/2 ML Vial IVP PRN (17:30)
[2022-02-22] MEDS ORDERED: Scopolamine 1.5 mg/72 hour Patch TOP PRN (17:30)
[2022-02-22] MEDS ORDERED: Ondansetron ODT 4 MG TAB PO PRN (17:30)
[2022-02-22] MEDS ORDERED: Bisacodyl 10 MG SUPP PR PRN ×2 (17:31→21:39)
[2022-02-22] MEDS ORDERED: Haloperidol Lactate 5 MG/ML VIAL SLOW IVP PRN (17:45)
[2022-02-23] MEDS: Morphine 2 MG/ML VIAL SLOW IVP PRN ×3 (08:49→13:50)
[2022-02-23] MEDS: Lorazepam 2 MG/ML VIAL SLOW IVP PRN (13:50)
[2022-02-24] MEDS: Lorazepam 2 MG/ML VIAL SLOW IVP PRN (18:05)
[2022-02-24] MEDS: Morphine 2 MG/ML VIAL SLOW IVP PRN (20:41)
[2022-02-24] MEDS: Terbinafine 1% 30 GM TUBE TOP SCH (20:43)
[2022-02-25] MEDS: Morphine 2 MG/ML VIAL SLOW IVP PRN ×3 (08:42→20:51)
[2022-02-25] MEDS: Terbinafine 1% 30 GM TUBE TOP SCH ×2 (08:43→20:52)
[2022-02-25] MEDS: Lorazepam 2 MG/ML VIAL SLOW IVP PRN (11:18)
[2022-02-26] MEDS: Morphine 2 MG/ML VIAL SLOW IVP PRN (06:00)
[2022-02-26] MEDS: Lorazepam 2 MG/ML VIAL SLOW IVP PRN ×2 (08:33→14:35)
[2022-02-26] MEDS: Terbinafine 1% 30 GM TUBE TOP SCH (08:33)
[2022-02-27] MEDS: Acetaminophen 650 MG Suppository PR PRN (20:39)
[2022-02-28] MEDS: Fentanyl 100 MCG/2 ML VIAL SLOW IVP PRN ×4 (08:51→18:28)
[2022-02-28] MEDS: Lorazepam 2 MG/ML VIAL SLOW IVP PRN (15:56)
[2022-03-01] MEDS: Fentanyl 100 MCG/2 ML VIAL SLOW IVP PRN ×8 (01:07→22:29)
[2022-03-01] MEDS ORDERED: Diazepam 10 MG/2 ML SYRINGE IVP SCH ×2 (10:45→21:00)
[2022-03-01] MEDS: Scopolamine 1.5 mg/72 hour Patch TOP SCH (12:17)
[2022-03-01] MEDS: Diazepam 10 MG/2 ML SYRINGE IVP SCH ×2 (16:21→23:01)
[2022-03-02] MEDS: Fentanyl 100 MCG/2 ML VIAL SLOW IVP PRN ×2 (02:44→05:41)
[2022-03-02] MEDS: Lorazepam 2 MG/ML VIAL SLOW IVP PRN ×2 (02:47→11:38)
[2022-03-02] MEDS: Diazepam 10 MG/2 ML SYRINGE IVP SCH ×2 (08:46→15:33)
[2022-03-02] MEDS ORDERED: Fentanyl 100 MCG/2 ML VIAL SLOW IVP PRN (09:46)
[2022-03-02] MEDS: Acetaminophen 650 MG Suppository PR PRN (10:27)
[2022-03-03] MEDS: Diazepam 10 MG/2 ML SYRINGE IVP SCH ×3 (00:32→15:57)
[2022-03-04] MEDS: Diazepam 10 MG/2 ML SYRINGE IVP SCH ×3 (02:17→23:02)
[2022-03-04] MEDS: Scopolamine 1.5 mg/72 hour Patch TOP SCH (12:47)
[2022-03-05] MEDS: Diazepam 10 MG/2 ML SYRINGE IVP SCH ×2 (08:35→21:01)
[2022-03-05 10:12] VITALS: TEMP 97
[2022-03-06] MEDS: Diazepam 10 MG/2 ML SYRINGE IVP SCH (08:07)
[2022-03-06] MEDS ORDERED: Diazepam 10 MG/2 ML SYRINGE IVP PRN (10:03)
[2022-03-07] MEDS: Scopolamine 1.5 mg/72 hour Patch TOP SCH (11:31)
[2022-03-08 08:23] VITALS: BP 47/26
== END 2022-03-08 09:45 | disposition expired | DRG 951 ==
LOC: CCU 17:00 → T4-A 20:01
PROVIDERS: ADMIT Family Medicine; ATTEND Family Medicine
DX: Z51.5 Encounter for palliative care (principal); Z66 Do not resuscitate; A41.9 Sepsis, unspecified organism; J18.9 Pneumonia, unspecified organism; J80 Acute respiratory distress syndrome; D65 Disseminated intravascular coagulation [defibrination syndrome]; N18.4 Chronic kidney disease, stage 4 (severe); I25.10 Atherosclerotic heart disease of native coronary artery without angina pectoris; K74.60 Unspecified cirrhosis of liver; I12.9 Hypertensive chronic kidney disease with stage 1 through stage 4 chronic kidney disease, or unspecified chronic kidney disease; E11.22 Type 2 diabetes mellitus with diabetic chronic kidney disease; D63.1 Anemia in chronic kidney disease; R45.1 Restlessness and agitation; B36.8 Other specified superficial mycoses; L27.1 Localized skin eruption due to drugs and medicaments taken internally; T40.2X5A Adverse effect of other opioids, initial encounter; Z86.73 Personal history of transient ischemic attack (TIA), and cerebral infarction without residual deficits; Z88.0 Allergy status to penicillin
CPT/HCPCS: 36416; J1200; J2060; J2270; J3010; J3360